=== PATIENT | male | born 1970 | race Caucasian/White ===

== ENCOUNTER 2020-10-07 13:07 | Outpatient (CLI) | payer OTHER ==
--- NOTE | 2020-10-07 14:18 | CT ---
CTA CHEST WITH IV CONTRAST AND 3D POSTPROCESSIN10/07/20 HISTORY: Atrial fibrillation. Possible thoracic aortic aneurysm on echo. FINDINGS: The coronal oblique CTA measurements of the ascending aorta are as follows: Aortic annulus: 2.8 cm. Aortic sinus of Valsalva: 4.3 cm. Sinotubular junction: 2.9 cm. Mid ascending aorta: 3.9 cm. High ascending aorta: 3.3 cm. The AP dimensions of the thoracic aorta on the axial images at the level of the main and right pulmon kandace arteries are 3.9 cm in the ascending aorta and 2.5 cm in the descending aorta. No intimal flap is seen in the thoracic aorta to suggest dissection. No pleural or pericardial effusi ons are identified. No pneumothoraces, focal areas of consolidation, lung nodules or masses are ident ified. There are degenerative changes in the spine. Upper abdominal tomograms demonstrate a cortical cyst arising from the right anterior cortex of the r ight kidney. IMPRESSION: Thoracic aortic measurements as above. POS: OFF
== END 2020-10-07 13:08 | disposition home or self-care (01) ==
LOC: BICCT 13:07
PROVIDERS: ATTEND Internal Medicine Cardiovascular Disease
DX: I77.810 Thoracic aortic ectasia (principal)
CPT/HCPCS: 71275

== ENCOUNTER 2021-08-18 14:43 | Outpatient (CLI) | payer BC | END 2021-08-18 14:44 | disposition home or self-care (01) | LOC: RAD 14:43 | PROVIDERS: ATTEND Internal Medicine Critical Care Medicine | DX: R06.00 Dyspnea, unspecified (principal) | CPT/HCPCS: 71046 ==

== ENCOUNTER 2023-08-08 05:49 | Observation (INO) | payer BC ==
[2023-08-04 12:44] VITALS: BMI 36.9
[2023-08-08] MEDS ORDERED: Tranexamic Acid 1,000 MG/10 ML VIAL ONE (06:02)
[2023-08-08] MEDS ORDERED: Sodium Chloride 0.9% 100 ML ONE ×2 (06:02→06:51)
[2023-08-08] MEDS ORDERED: VANCOMYCIN 2 GRAM/500 ML BAG 2 GM in Premix Bag 1 BAG IVPB SCH (06:15)
[2023-08-08] MEDS ORDERED: Bupivacaine PF 0.5% 30 ML VIAL ONE ×2 (06:24→06:37)
[2023-08-08] MEDS ORDERED: fentaNYL 50 mcg/mL 1 mL Vial ONE (06:37)
[2023-08-08] MEDS ORDERED: Midazolam HCl 2 mg/2 ml Vial ONE (06:37)
[2023-08-08] MEDS ORDERED: CEFAZOLIN 2 GM VIAL ONE (06:51)
[2023-08-08] MEDS ORDERED: HYDROcodone/Acetaminophen 10/325 mg Tablet PO PRN ×3 (07:09→07:45)
[2023-08-08] MEDS ORDERED: diphenhydrAMINE 25 MG CAP PO PRN (07:09)
[2023-08-08] MEDS ORDERED: Zolpidem Tartrate 5 MG TAB PO PRN ×2 (07:09→07:45)
[2023-08-08] MEDS ORDERED: Ondansetron PF 4 MG/2 ML Vial IVP PRN ×2 (07:09→07:45)
[2023-08-08] MEDS ORDERED: Acetaminophen 325 MG TAB PO PRN (07:09)
[2023-08-08] MEDS ORDERED: fentaNYL 50 mcg/mL 1 mL Vial SLOW IVP PRN ×3 (07:09→07:46)
[2023-08-08] MEDS ORDERED: Promethazine HCl 25 MG/ML VIAL IM PRN ×2 (07:09→07:45)
[2023-08-08] MEDS ORDERED: Propofol 1,000 MG/100 ML VIAL IV ONE (07:11)
[2023-08-08] MEDS ORDERED: PHENYLEPHRINE-NS 100 MCG/ML 10 ML SYRINGE ONE (07:20)
[2023-08-08] MEDS ORDERED: Bupivacaine HCl 0.5%/Epinephrine 1:200,000/PF 30 ml Vial ONE (07:20)
[2023-08-08] MEDS ORDERED: traMADol HCl 50 MG TAB PO PRN ×2 (07:45)
[2023-08-08] MEDS ORDERED: Ropivacaine 0.2% 550 ML 550 ML NERVE BLCK SCH (07:45)
[2023-08-08] MEDS ORDERED: Aspirin 81 mg Enteric Coated Tablet PO SCH (09:00)
[2023-08-08] MEDS ORDERED: Fentanyl 250 MCG/5 ML VIAL ONE (09:53)
[2023-08-08] MEDS: dilTIAZem CD 180 MG CAP PO SCH (10:28)
[2023-08-08] MEDS: Sodium Chloride 0.9% 1,000 ML IV SCH ×2 (10:30→18:47)
[2023-08-08] MEDS: HYDROcodone/Acetaminophen 10/325 mg Tablet PO PRN (13:09)
[2023-08-08] MEDS: Ketorolac Tromethamine 30 MG/ML VIAL IVP SCH ×3 (13:11→23:30)
[2023-08-08] MEDS: Aspirin 81 mg Enteric Coated Tablet PO SCH ×2 (13:12→20:13)
[2023-08-08] MEDS: Losartan/Hydrochlorothiazide 100 mg/25 mg Tablet PO SCH (13:12)
[2023-08-08] MEDS: Ferrous Gluconate 324 MG TAB PO SCH ×2 (13:12→20:13)
[2023-08-08] MEDS ORDERED: Ketorolac Tromethamine 30 MG/ML VIAL IVP SCH (14:00)
[2023-08-08] MEDS: CEFAZOLIN 2 GM in Sodium Chloride 0.9% 100 ML IVPB SCH ×2 (16:20→22:40)
[2023-08-08] MEDS: Senokot S 8.6-50 MG TAB PO SCH ×2 (16:44→20:14)
[2023-08-08] MEDS: Multivitamin W/ Minerals 1 TAB PO SCH (16:44)
[2023-08-09] MEDS: Sodium Chloride 0.9% 1,000 ML IV SCH (04:32)
[2023-08-09] MEDS: Ketorolac Tromethamine 30 MG/ML VIAL IVP SCH ×2 (05:40→11:20)
[2023-08-09 06:36] LABS: Hematocrit 35.7 % (42.0-52.0); Hemoglobin 11.9 g/dL (14.0-18.0); Mean Corpuscular HGB CONC 33.3 g/dL (32.0-36.0); Mean Corpuscular Hemoglobin 29.5 pg (27.0-31.0); Mean Corpuscular Volume 88.4 fl (78.0-98.0); Mean Platelet Volume 11.3 fL (7.4-10.4); Platelet Count 266 10x3/uL (130-400); Red Blood Cell (RBC) Count 4.04 mill/uL (4.70-6.10); White Blood Cell (WBC) Count 10.5 10x3/uL (4.8-10.8)
[2023-08-09] MEDS: Losartan/Hydrochlorothiazide 100 mg/25 mg Tablet PO SCH (08:45)
[2023-08-09] MEDS: Multivitamin W/ Minerals 1 TAB PO SCH (08:45)
[2023-08-09] MEDS: dilTIAZem CD 180 MG CAP PO SCH (08:46)
[2023-08-09] MEDS: Aspirin 81 mg Enteric Coated Tablet PO SCH (08:46)
[2023-08-09] MEDS: Senokot S 8.6-50 MG TAB PO SCH (08:46)
[2023-08-09] MEDS: Ferrous Gluconate 324 MG TAB PO SCH (08:46)
[2023-08-09 12:07] VITALS: BP 116/75; TEMP 97.7
[2023-08-09] MEDS: HYDROcodone/Acetaminophen 10/325 mg Tablet PO PRN (12:25)
== END 2023-08-09 12:30 | disposition home or self-care (01) ==
LOC: SDC 05:49 → SURG A 10:58
PROVIDERS: ADMIT Orthopaedic Surgery; ATTEND Orthopaedic Surgery
PROC: 0SRC0JZ Replacement of Right Knee Joint with Synthetic Substitute, Open Approach (ICD-10-PCS; principal; 2023-08-08)
DX: M17.11 Unilateral primary osteoarthritis, right knee (principal); I10 Essential (primary) hypertension; E78.5 Hyperlipidemia, unspecified; I48.91 Unspecified atrial fibrillation; Z96.652 Presence of left artificial knee joint; Z79.899 Other long term (current) drug therapy
CPT/HCPCS: 36415; 85027; A4306; C1776; J1885; J2250; J2704; J2795; J3010; J3370; J3490; S0020